=== PATIENT | female | born 1990 | race Caucasian/White ===

== ENCOUNTER 2021-12-12 06:56 | Inpatient (IN) | payer MEDICAID ==
[2021-12-12] MEDS ORDERED: Nalbuphine 10 MG/1 ML Vial IVPUSH PRN (07:06)
[2021-12-12] MEDS ORDERED: Lidocaine 1% 50 ML MDV INJECT ONE (07:06)
[2021-12-12] MEDS ORDERED: Ondansetron 4 MG/2 ML SDV IVPUSH PRN (07:06)
[2021-12-12] MEDS ORDERED: Oxytocin/Lactated Ringers 10 UNIT/1,000 ML BAG IV SCH ×2 (07:15)
[2021-12-12] MEDS ORDERED: Lactated Ringers 1,000 ML IV SCH (07:15)
[2021-12-12] MEDS ORDERED: fentaNYL 100 MCG/2 ML SDV EPIDUR PRN (07:50)
[2021-12-12] MEDS ORDERED: Bupivacaine/fentaNYL/NS 100 ML Bag EPIDUR PRN (07:50)
[2021-12-12] MEDS ORDERED: ePHEDrine 50 MG/ML SDV IVPUSH PRN (07:50)
[2021-12-12] MEDS ORDERED: diphenhydrAMINE 50 MG/ML SDV IVPUSH PRN (07:50)
[2021-12-12] MEDS ORDERED: Sodium Chloride 0.9% 10 ML Syringe FLUSH SCH (09:00)
[2021-12-12] MEDS ORDERED: Lidocaine 1% 50 ML MDV ONE (17:08)
[2021-12-12] MEDS ORDERED: Benzocaine/Menthol 20%-0.5% Spray 78 GM Cannister TOP PRN (18:08)
[2021-12-12] MEDS ORDERED: Acetaminophen 325 MG Tab PO PRN (18:08)
[2021-12-12] MEDS ORDERED: Witch Hazel Medicated Pads 40/Jar TOP PRN (18:08)
[2021-12-12] MEDS: Ibuprofen 600 MG Tab PO PRN (20:18)
[2021-12-13] MEDS: Ibuprofen 600 MG Tab PO PRN ×3 (03:58→17:20)
[2021-12-14] MEDS: Ibuprofen 600 MG Tab PO PRN ×2 (00:07→08:00)
== END 2021-12-14 08:50 | disposition home or self-care (01) | DRG 807 ==
LOC: JD.OB 06:56 → OBSVTOIN 17:46 → JD.OB 17:46
PROVIDERS: ADMIT Obstetrics & Gynecology; ATTEND Obstetrics & Gynecology
PROC: 10E0XZZ Delivery of Products of Conception, External Approach (ICD-10-PCS; principal; 2021-12-12)
PROC: 10907ZC Drainage of Amniotic Fluid, Therapeutic from Products of Conception, Via Natural or Artificial Opening (ICD-10-PCS; 2021-12-12)
PROC: 3E033VJ Introduction of Other Hormone into Peripheral Vein, Percutaneous Approach (ICD-10-PCS; 2021-12-12)
DX: O80 Encounter for full-term uncomplicated delivery (principal); Z37.0 Single live birth; Z3A.39 39 weeks gestation of pregnancy; Z91.013 Allergy to seafood; Z91.09 Other allergy status, other than to drugs and biological substances; Z20.822 Contact with and (suspected) exposure to COVID-19
CPT/HCPCS: 36415; 59025; 59409; 85025; 86592; 86803; 86850; 86900; 86901; A9270-GY; J2300; J2590; J7120; U0002

== ENCOUNTER 2021-12-22 17:59 | Inpatient (IN) | payer MEDICAID ==
[2021-12-22] MEDS ORDERED: Sodium Chloride 0.9% 1,000 ML IV ONE (18:12)
[2021-12-22] MEDS ORDERED: Sodium Chloride 0.9% 10 ML Syringe FLUSH PRN (18:12)
[2021-12-22] MEDS ORDERED: Oxytocin/Lactated Ringers 10 UNIT/1,000 ML BAG IV SCH (18:30)
[2021-12-22] MEDS ORDERED: HYDROmorphone 0.5 MG/0.5 ML Syringe IVPUSH ONE (18:36)
[2021-12-22] MEDS ORDERED: Propofol 200 MG/20 ML SDV ONE (20:49)
[2021-12-22] MEDS ORDERED: Lidocaine 1% 6 ML ONE (20:49)
[2021-12-22] MEDS ORDERED: Midazolam 1 MG/ML 2 ML SDV ONE (20:49)
[2021-12-22] MEDS ORDERED: fentaNYL 250 MCG/5 ML SDV ONE (20:49)
[2021-12-22] MEDS ORDERED: Ondansetron 4 MG/2 ML SDV ONE (20:50)
[2021-12-22] MEDS ORDERED: Metoclopramide 10 MG/2 ML SDV ONE (20:50)
[2021-12-22] MEDS ORDERED: Succinylcholine/Sod PF 100 MG/5 ML SYRINGE IV ONE ×2 (20:50→20:51)
[2021-12-22] MEDS ORDERED: Rocuronium 50 MG/5 ML Vial ONE (20:50)
[2021-12-22] MEDS ORDERED: Lactated Ringers 1,000 ML ONE ×2 (21:30→21:43)
[2021-12-22] MEDS ORDERED: Dexamethasone 4 MG/ML 5 ML MDV ONE (21:38)
[2021-12-22] MEDS ORDERED: HYDROmorphone 0.5 MG/0.5 ML Syringe IVPUSH PRN (21:49)
[2021-12-22] MEDS ORDERED: fentaNYL 100 MCG/2 ML SDV IVPUSH PRN (21:49)
[2021-12-22] MEDS ORDERED: Ketamine 500 mg/10 ML MDV ONE (21:54)
[2021-12-22] MEDS ORDERED: Sodium Chloride 0.9% 50 ML SDV ONE (21:56)
[2021-12-22] MEDS ORDERED: Sodium Chloride 0.9% 100 ML ONE (22:02)
[2021-12-22] MEDS ORDERED: Morphine 2 MG/ML SYRINGE IVPUSH PRN (22:49)
[2021-12-22] MEDS ORDERED: Ibuprofen 400 MG Tab PO PRN (22:49)
[2021-12-22] MEDS: cefOXitin 1 GM in Premix Bag 1 BAG IV SCH (22:55)
[2021-12-22] MEDS ORDERED: HYDROmorphone 0.5 MG/0.5 ML Syringe ONE (23:00)
[2021-12-23] MEDS: cefOXitin 1 GM in Premix Bag 1 BAG IV SCH (04:57)
[2021-12-23] MEDS: Acetaminophen/HYDROcodone 325-5 MG Tab PO PRN ×2 (11:59→20:21)
[2021-12-23] MEDS: Methylergonovine 0.2 MG/1 ML Amp IM SCH ×3 (11:59→20:22)
[2021-12-23] MEDS: Ibuprofen 600 MG Tab PO PRN (16:26)
[2021-12-24] MEDS: Methylergonovine 0.2 MG/1 ML Amp IM SCH (00:33)
[2021-12-24] MEDS: Ibuprofen 600 MG Tab PO PRN ×2 (00:33→08:37)
== END 2021-12-24 08:55 | disposition home or self-care (01) | DRG 769 ==
LOC: JD.ED 17:59 → JD.SDS 20:28 → JD.OB 23:50 → JD.SDS 23:50 → JD.OB 23:51
PROVIDERS: ADMIT Obstetrics & Gynecology; ATTEND Obstetrics & Gynecology
PROC: 10D17Z9 Manual Extraction of Products of Conception, Retained, Via Natural or Artificial Opening (ICD-10-PCS; principal; 2021-12-22)
PROC: 30233N1 Transfusion of Nonautologous Red Blood Cells into Peripheral Vein, Percutaneous Approach (ICD-10-PCS; 2021-12-22)
DX: O72.2 Delayed and secondary postpartum hemorrhage (principal); U07.1 COVID-19; O98.53 Other viral diseases complicating the puerperium; O90.81 Anemia of the puerperium; D64.9 Anemia, unspecified; O75.4 Other complications of obstetric surgery and procedures
CPT/HCPCS: 00940; 36415; 36430; 51702; 76857; 76857-26; 80053; 81001; 83735; 85025; 85027; 86850; 86900; 86901; 86922; 96365; 96366; 96375; 99285; 99285-25; A9270-GY; J0330; J0694; J1100; J1170; J2210; J2250; J2370; J2405; J2590; J2704; J2765; J3010; J7030; J7120; P9016; U0002

== ENCOUNTER 2022-04-05 07:27 | Emergency (ER) | payer MEDICAID ==
[2022-04-05] MEDS ORDERED: Sodium Chloride 0.9% 10 ML Syringe FLUSH PRN (07:42)
[2022-04-05] MEDS ORDERED: Ondansetron 4 MG/2 ML SDV IVPUSH ONE (07:42)
[2022-04-05] MEDS ORDERED: Sodium Chloride 0.9% 1,000 ML IV STA (07:42)
[2022-04-05] MEDS ORDERED: HYDROmorphone 0.5 MG/0.5 ML Syringe IVPUSH ONE ×2 (07:44→09:43)
[2022-04-05] MEDS ORDERED: Sodium Chloride 0.9% 1,000 ML IV ONE (09:17)
[2022-04-05] MEDS ORDERED: Metoclopramide 10 MG/2 ML SDV IVPUSH ONE (09:43)
== END 2022-04-05 11:05 | disposition home or self-care (01) ==
LOC: JD.ED 07:27
DX: A08.4 Viral intestinal infection, unspecified (principal); Z90.49 Acquired absence of other specified parts of digestive tract; Z86.16 Personal history of COVID-19; Z91.041 Radiographic dye allergy status; Z91.013 Allergy to seafood
CPT/HCPCS: 36415; 74176; 80053; 81001; 81025; 83690; 85025; 86140; 96361; 96374; 96375; 96376; 99284; J1170; J2405; J2765; J3490; J7030

== ENCOUNTER 2023-06-07 06:55 | Inpatient (IN) | payer MEDICAID ==
[~2023-06-07 06:55] MED LIST: Lidocaine 1% 10 ML MDV ONE
[2023-06-07] MEDS ORDERED: Sodium Chloride 0.9% 10 ML Syringe FLUSH PRN (07:23)
[2023-06-07] MEDS ORDERED: Ondansetron 4 MG/2 ML SDV IVPUSH PRN (07:23)
[2023-06-07] MEDS ORDERED: Acetaminophen 325 MG Tab PO PRN ×2 (07:23→12:44)
[2023-06-07] MEDS ORDERED: Nalbuphine 10 MG/0.5 ML Syringe IVPUSH PRN (07:23)
[2023-06-07] MEDS ORDERED: Oxytocin/Lactated Ringers 10 UNIT/1,000 ML BAG IV SCH ×2 (07:30)
[2023-06-07 07:52] LABS: HEMATOCRIT 37.6 % (34.1-44.9); MEAN CORPUSCULAR HEMOGLOBIN 31.3 pg (25.6-32.2); MEAN PLATELET VOLUME 10.7 fl (9.4-12.3); RED BLOOD CELL COUNT 3.96 M/mm3 (3.98-5.22); WHITE BLOOD CELL COUNT,WBC 13.21 K/mm3 (3.98-10.04)
[2023-06-07 07:53] LABS: HEMOGLOBIN 12.4 gm/dl (11.2-15.7); MEAN CORPUSCULAR VOLUME 94.9 fl (79.4-94.8); PLATELET COUNT,PLT 258 K/mm3 (182-369)
[2023-06-07] MEDS: Lactated Ringers 1,000 ML IV SCH ×2 (07:59→09:45)
[2023-06-07] MEDS ORDERED: Sodium Chloride 0.9% 10 ML Syringe FLUSH SCH (09:00)
[2023-06-07] MEDS ORDERED: Bupivacaine/fentaNYL/NS 100 ML Bag EPIDUR PRN (09:13)
[2023-06-07] MEDS ORDERED: ePHEDrine 50 MG/ML SDV IVPUSH PRN (09:13)
[2023-06-07] MEDS ORDERED: diphenhydrAMINE 50 MG/ML SDV IVPUSH PRN (09:13)
[2023-06-07] MEDS ORDERED: fentaNYL 100 MCG/2 ML SDV EPIDUR PRN (09:13)
[2023-06-07] MEDS ORDERED: Docusate Sodium 100 MG Cap PO PRN (12:44)
[2023-06-07] MEDS ORDERED: Witch Hazel Medicated Pads 40/Jar TOP PRN (12:44)
[2023-06-07] MEDS ORDERED: Benzocaine/Menthol 20%-0.5% Spray 78 GM Cannister TOP PRN (12:44)
[2023-06-07] MEDS: Ibuprofen 600 MG Tab PO PRN ×2 (15:55→23:59)
[2023-06-08] MEDS ORDERED: Sertraline 50 MG Tab PO SCH (09:00)
[2023-06-08] MEDS: Ibuprofen 600 MG Tab PO PRN (09:43)
== END 2023-06-08 13:25 | disposition home or self-care (01) | DRG 807 ==
LOC: JD.OB 06:55 → OBSVTOIN 12:01 → JD.OB 12:01
PROVIDERS: ADMIT Obstetrics & Gynecology; ATTEND Obstetrics & Gynecology
PROC: 10E0XZZ Delivery of Products of Conception, External Approach (ICD-10-PCS; principal; 2023-06-07)
PROC: 10907ZC Drainage of Amniotic Fluid, Therapeutic from Products of Conception, Via Natural or Artificial Opening (ICD-10-PCS; 2023-06-07)
PROC: 3E033VJ Introduction of Other Hormone into Peripheral Vein, Percutaneous Approach (ICD-10-PCS; 2023-06-07)
PROC: 3E0R3BZ Introduction of Anesthetic Agent into Spinal Canal, Percutaneous Approach (ICD-10-PCS; 2023-06-07)
PROC: 00HU33Z Insertion of Infusion Device into Spinal Canal, Percutaneous Approach (ICD-10-PCS; 2023-06-07)
DX: O99.344 Other mental disorders complicating childbirth (principal); Z37.0 Single live birth; O77.0 Labor and delivery complicated by meconium in amniotic fluid; F41.9 Anxiety disorder, unspecified; O99.02 Anemia complicating childbirth; D64.9 Anemia, unspecified; Z3A.39 39 weeks gestation of pregnancy; Z91.013 Allergy to seafood; Z88.8 Allergy status to other drugs, medicaments and biological substances; Z86.16 Personal history of COVID-19; Z90.49 Acquired absence of other specified parts of digestive tract; Z98.890 Other specified postprocedural states; Z79.899 Other long term (current) drug therapy; Z87.891 Personal history of nicotine dependence
CPT/HCPCS: 01967; 36415; 51702; 59025; 59409; 85027; 86592; 86850; 86900; 86901; A9270-GY; J2590; J3010; J3490; J7120

== ENCOUNTER 2024-12-26 06:42 | Inpatient (IN) | payer MEDICAID ==
[2024-12-26] MEDS ORDERED: Sodium Chloride 0.9% 10 ML Syringe FLUSH PRN (06:53)
[2024-12-26] MEDS ORDERED: Lidocaine 1% 50 ML MDV INJECT PRN (06:53)
[2024-12-26] MEDS ORDERED: Nalbuphine 10 MG/1 ML Vial IVPUSH PRN (06:53)
[2024-12-26] MEDS ORDERED: Ondansetron 4 MG/2 ML SDV IVPUSH PRN (06:53)
[2024-12-26] MEDS ORDERED: Oxytocin/0.9 % Sodium Chloride 30 UNIT/500 ML BAG IV SCH (07:00)
[2024-12-26 07:12] LABS: BASOPHILS PERCENT AUTO 0.4 % (0.0-1.0); EOSINOPHILS ABSOLUTE AUTO 0.1 K/mm3 (0.0-0.4); EOSINOPHILS PERCENT AUTO 0.4 % (0.0-6.0); HEMATOCRIT 36.1 % (37.0-47.0); HEMOGLOBIN 11.8 gm/dl (12.0-16.0); IMMATURE GRAN ABSOLUTE AUTO 0.05 K/mm3 (0.00-0.05); IMMATURE GRAN PERCENT AUTO 0.4 % (0.0-0.4); LYMPHOCYTES ABSOLUTE AUTO 2.8 K/mm3 (1.0-4.8); MEAN CORPUSCULAR HEMOGLOBIN 29.9 pg (28.0-32.0); MEAN CORPUSCULAR HGB CONC 32.7 g/dl (32.0-36.0); MEAN CORPUSCULAR VOLUME 91.6 fl (83.0-99.0); MEAN PLATELET VOLUME 10.2 fl (9.4-12.3); MONOCYTES ABSOLUTE AUTO 0.7 K/mm3 (0.0-0.8); MONOCYTES PERCENT AUTO 6.6 % (0.0-8.0); NEUTROPHILS ABSOLUTE AUTO 7.6 K/mm3 (1.8-7.7); NEUTROPHILS PERCENT AUTO 67.2 % (41.0-71.0); PLATELET COUNT,PLT 225 K/mm3 (150-400); RED BLOOD CELL COUNT 3.94 M/mm3 (4.10-5.30); WHITE BLOOD CELL COUNT,WBC 11.27 K/mm3 (3.9-11.3)
[2024-12-26] MEDS: Lactated Ringers 1,000 ML IV SCH (07:44)
[2024-12-26] MEDS ORDERED: ePHEDrine 50 MG/ML SDV IVPUSH PRN (09:27)
[2024-12-26] MEDS: Oxytocin/0.9 % Sodium Chloride 30 UNIT/500 ML BAG IV SCH (09:27)
[2024-12-26] MEDS ORDERED: diphenhydrAMINE 50 MG/ML SDV IVPUSH PRN (09:27)
[2024-12-26] MEDS: Bupivacaine/fentaNYL/NS 100 ML Bag EPIDUR PRN (09:41)
[2024-12-26] MEDS: Sodium Chloride 0.9% 10 ML Syringe FLUSH SCH (09:42)
[2024-12-26] MEDS ORDERED: Docusate Sodium 100 MG Cap PO PRN (14:45)
[2024-12-26] MEDS: Ibuprofen 600 MG Tab PO SCH (16:13)
[2024-12-26] MEDS: Benzocaine/Menthol 20%-0.5% Spray 78 GM Cannister TOP PRN (16:14)
[2024-12-26] MEDS: Witch Hazel Medicated Pads 40/Jar TOP PRN (16:14)
[2024-12-26] MEDS: Acetaminophen 325 MG Tab PO PRN (20:31)
== END 2024-12-27 14:45 | disposition home or self-care (01) | DRG 807 ==
LOC: JD.OB 06:42 → OBSVTOIN 13:44 → JD.OB 13:44
PROVIDERS: ADMIT Obstetrics & Gynecology; ATTEND Obstetrics & Gynecology
PROC: 10E0XZZ Delivery of Products of Conception, External Approach (ICD-10-PCS; principal; 2024-12-26)
PROC: 10907ZC Drainage of Amniotic Fluid, Therapeutic from Products of Conception, Via Natural or Artificial Opening (ICD-10-PCS; 2024-12-26)
PROC: 3E033VJ Introduction of Other Hormone into Peripheral Vein, Percutaneous Approach (ICD-10-PCS; 2024-12-26)
PROC: 3E0R3BZ Introduction of Anesthetic Agent into Spinal Canal, Percutaneous Approach (ICD-10-PCS; 2024-12-26)
PROC: 3E0R33Z Introduction of Anti-inflammatory into Spinal Canal, Percutaneous Approach (ICD-10-PCS; 2024-12-26)
DX: O80 Encounter for full-term uncomplicated delivery (principal); Z37.0 Single live birth; Z3A.39 39 weeks gestation of pregnancy
CPT/HCPCS: 01967; 36415; 51702; 59025; 59409; 85025; 86592; 86850; 86900; 86901; A9270-GY; J3490; J7120; J7999